=== PATIENT | male | born 1975 | race African-American/Black ===

== ENCOUNTER 2016-06-20 20:25 | Emergency (ER) | payer OTHER ==
[~2016-06-20] VITALS: Ht 182.9 cm; Wt 100.0 kg
[2016-06-20] MEDS ORDERED: KETOROLAC 60MG/2ML VIAL IM ONE (23:15)
[2016-06-20 23:38] VITALS: BP 134/74
== END 2016-06-21 01:04 | disposition home or self-care (01) ==
LOC: ER 21:04
DX: M25.562 Pain in left knee (principal); R07.89 Other chest pain; V89.2XXA Person injured in unspecified motor-vehicle accident, traffic, initial encounter; Y93.89 Activity, other specified; Y92.89 Other specified places as the place of occurrence of the external cause; Y99.8 Other external cause status
CPT/HCPCS: 71020; 73562; 96372; 99284; J1885